=== PATIENT | female | born 1955 | race Caucasian/White ===

== ENCOUNTER 2023-08-23 20:52 | Inpatient (IN) | payer OTHER ==
[~2023-08-23] VITALS: Ht 172.7 cm; Wt 100.2 kg
[2023-08-23 21:45] VITALS: PULSE 127; RESP 16; O2SAT 94
[2023-08-23] MEDS ORDERED: LACTATED RINGER'S 2,000 ML IV ONE (22:00)
[2023-08-23] MEDS ORDERED: IOHEXOL 350 MG/ML 100ML IJ ONE (22:19)
[2023-08-23 22:35] LABS: Basophils # (auto) 0 10 ^3/uL (0-0.2); Basophils % (auto) 0.1 % (0.0-2.0); Eosinophils # (auto) 0 10 ^3/uL (0-0.8); Eosinophils % (auto) 0.3 % (0.0-7.0); Hematocrit 33.9 % (36.0-46.0); Hemoglobin 10.7 g/dL (12.2-16.2); Lymphocytes % (auto) 18.3 % (10.0-50.0); Mean Corpuscular Hgb Conc. 31.6 g/dL (32.0-36.0); Mean Corpuscular Volume 88.8 fL (80.0-100.0); Monocytes # (auto) 0.9 10 ^3/uL (0-1.3); Neutrophils # (auto) 8.1 10 ^3/uL (1.6-8.6); Neutrophils % (auto) 73.3 % (37.0-80.0); Red Blood Cells 3.82 10^6/uL (4.0-5.20); White Blood Cell 11.1 10^3/uL (4.4-10.8)
[2023-08-23 22:52] LABS: Albumin 2.2 g/dL (3.2-4.8); Alkaline Phosphatase 72 U/L (46-116); Anion Gap 12 (5-15); Aspartate Aminotransferase 12 U/L (13-40); BUN/Creatinine Ratio 14.5 (10.0-20.0); Bilirubin, Total 0.3 mg/dL (0.2-1.0); Blood Urea Nitrogen 9 mg/dL (9-23); Calcium 7.7 mg/dL (8.5-10.1); Carbon Dioxide 22 mmol/L (20-30); Chloride 96 mmol/L (98-107); Glucose 94 mg/dL (74-106); Sodium 130 mmol/L (136-145); Total Protein 3.8 g/dL (5.7-8.2)
[2023-08-23 23:00] LABS: Alanine Aminotransferase < 9 U/L (7-40); Potassium 2.9 mmol/L (3.5-5.1)
[2023-08-23] MEDS ORDERED: MORPHINE SULFATE 4 MG/ML SYR/VIAL IV ONE (23:00)
[2023-08-23 23:11] LABS: Lipase 30 U/L (12-53)
[2023-08-23] MEDS ORDERED: POTASSIUM CHL 20MEQ/100ML 100 ML IV ONE (23:15)
[2023-08-23] MEDS ORDERED: POTASSIUM EFFERVESENT TAB 25 MEQ PO ONE (23:15)
[2023-08-24] VITALS (7 sets, daily range): BP systolic 122–130; BP diastolic 62–75; PULSE 101–110; RESP 13–20; TEMP 97.4–98.3; O2SAT 99–100
[2023-08-24 00:40] LABS: Urine Bacteria NONE SEEN /hpf (None Seen); Urine Blood 1+ /uL (Negative); Urine Budding Yeast MODERATE /hpf (None Seen); Urine Clarity HAZY (Clear); Urine Color Yellow (Yellow); Urine Mucus FEW (None Seen); Urine Protein, UAD TRACE (Negative); Urine Urobilinogen Normal (Negative); Urine WBC 24 /hpf (0 - 5)
[2023-08-24] MEDS ORDERED: metroNIDAZOLE 500MG/100ML 100 ML IV ONE (03:15)
[2023-08-24] MEDS ORDERED: cefTRIAXone 1GM/50ML D5W 50 ML IV ONE (03:15)
[2023-08-24] MEDS ORDERED: AZITHROMYCIN 500MG/ 250ML 250 ML IV ONE (03:15)
[2023-08-24] MEDS ORDERED: ONDANSETRON HCL 4 MG/2 ML VIAL IV ONE (03:30)
[2023-08-24] MEDS ORDERED: MORPHINE SULFATE 4 MG/ML SYR/VIAL IV ONE (03:30)
[2023-08-24] MEDS ORDERED: MORPHINE SULFATE INJ 2 MG/ml SYRG IV PRN (04:00)
[2023-08-24] MEDS ORDERED: NITROGLYCERIN 0.4 MG SL TAB SL PRN (04:00)
[2023-08-24] MEDS ORDERED: ACETAMINOPHEN 325 MG TAB PO PRN (04:00)
[2023-08-24] MEDS ORDERED: DEXTROSE (50%) 50ML SYRG IV PRN (04:00)
[2023-08-24] MEDS: SODIUM CHLORIDE 0.9% 1,000 ML IV SCH ×2 (04:55→13:20)
[2023-08-24] MEDS: PANTOPRAZOLE 40 MG/10 ML VIAL INJ IV SCH (05:56)
[2023-08-24] MEDS: ACCU-CHEK COMFORT CURVE STRIP VI SCH ×3 (06:01→17:28)
[2023-08-24] MEDS: InsuLIN REG 1unit/0.01ml Soln (100units/ml) SC SCH ×3 (06:03→17:28)
[2023-08-24 06:30] LABS: Anion Gap 10 (5-15); Carbon Dioxide 23 mmol/L (20-30); Chloride 98 mmol/L (98-107); Sodium 131 mmol/L (136-145)
[2023-08-24 06:32] LABS: Calcium 7.7 mg/dL (8.7-10.4)
[2023-08-24 06:36] LABS: Glucose 132 mg/dL (74-106)
[2023-08-24 06:37] LABS: BUN/Creatinine Ratio 29.3 (10.0-20.0); Blood Urea Nitrogen 17 mg/dL (9-23)
[2023-08-24] MEDS: levoFLOXacin 500MG 100 ML IV SCH (06:45)
[2023-08-24 07:02] LABS: Basophils # (auto) 0 10 ^3/uL (0-0.2); Basophils % (auto) 0.1 % (0.0-2.0); Eosinophils # (auto) 0 10 ^3/uL (0-0.8); Eosinophils % (auto) 0.2 % (0.0-7.0); Hematocrit 33.7 % (36.0-46.0); Hemoglobin 11.2 g/dL (12.2-16.2); Lymphocytes # (auto) 1.8 10 ^3/uL (0.4-5.4); Lymphocytes % (auto) 20.6 % (10.0-50.0); Mean Corpuscular Hemoglobin 29.2 pg (28.0-32.0); Mean Corpuscular Hgb Conc. 33.3 g/dL (32.0-36.0); Mean Corpuscular Volume 87.6 fL (80.0-100.0); Monocytes # (auto) 0.7 10 ^3/uL (0-1.3); Monocytes % (auto) 8.4 % (0.0-12.0); Neutrophils # (auto) 6.2 10 ^3/uL (1.6-8.6); Neutrophils % (auto) 70.7 % (37.0-80.0); Red Blood Cells 3.85 10^6/uL (4.0-5.20); Red Cell Distribution Width 18.4 % (11.8-14.3); White Blood Cell 8.7 10^3/uL (4.4-10.8)
[2023-08-24] MEDS: ENOXAPARIN SOD 40 MG/0.4 ML SYRINGE SC SCH (10:24)
[2023-08-24] MEDS ORDERED: AMLO1TAB21 PO (11:15)
[2023-08-24] MEDS ORDERED: ALLO100T PO (11:15)
[2023-08-24] MEDS ORDERED: CYCL0.05 EACHEYE (11:15)
[2023-08-24] MEDS ORDERED: ESCI5TAB20 PO (11:15)
[2023-08-24] MEDS ORDERED: APIX5TAB PO (11:15)
[2023-08-24] MEDS ORDERED: ALEN35TA18 PO (11:15)
[2023-08-24] MEDS ORDERED: CHOL4POW33 PO (12:01)
[2023-08-24] MEDS ORDERED: LOP2C PO (12:01)
[2023-08-24] MEDS ORDERED: PANT40TA57 PO (12:01)
[2023-08-24] MEDS ORDERED: MET500T PO (12:01)
[2023-08-24] MEDS: HYOSCYAMINE SULF 0.125 MG ODT TAB PO SCH ×2 (13:29→21:06)
[2023-08-24] MEDS: metroNIDAZOLE 500MG/100ML 100 ML IV SCH ×2 (13:57→21:07)
[2023-08-24] MEDS ORDERED: PNEUMOCOCCAL VACC POLYS 25 MCG/0.5 ML VIAL IM ONE (17:00)
[2023-08-24] MEDS ORDERED: INFLUENZA QUAD 2023-2024 0.5 ML SYRG IM ONE (17:15)
[2023-08-24] MEDS: MORPHINE SULFATE INJ 2 MG/ml SYRG IV PRN (21:08)
[2023-08-25] VITALS (7 sets, daily range): BP systolic 109–143; BP diastolic 58–79; PULSE 63–104; RESP 0–20; TEMP 97.8–99.1; O2SAT 97–100
[2023-08-25] MEDS: HYOSCYAMINE SULF 0.125 MG ODT TAB PO SCH (05:53)
[2023-08-25] MEDS: metroNIDAZOLE 500MG/100ML 100 ML IV SCH ×3 (05:53→21:07)
[2023-08-25] MEDS: InsuLIN REG 1unit/0.01ml Soln (100units/ml) SC SCH ×3 (06:00→11:42)
[2023-08-25] MEDS: SODIUM CHLORIDE 0.9% 1,000 ML IV SCH ×3 (06:07→13:30)
[2023-08-25] MEDS: ACCU-CHEK COMFORT CURVE STRIP VI SCH ×3 (06:07→11:42)
[2023-08-25 06:10] LABS: Basophils # (auto) 0 10 ^3/uL (0-0.2); Basophils % (auto) 0.1 % (0.0-2.0); Eosinophils # (auto) 0 10 ^3/uL (0-0.8); Eosinophils % (auto) 0.7 % (0.0-7.0); Hematocrit 28.6 % (36.0-46.0); Hemoglobin 9.2 g/dL (12.2-16.2); Lymphocytes # (auto) 1.3 10 ^3/uL (0.4-5.4); Lymphocytes % (auto) 26.7 % (10.0-50.0); Mean Corpuscular Hgb Conc. 32.3 g/dL (32.0-36.0); Mean Corpuscular Volume 89.7 fL (80.0-100.0); Monocytes # (auto) 0.4 10 ^3/uL (0-1.3); Monocytes % (auto) 7.8 % (0.0-12.0); Neutrophils # (auto) 3.2 10 ^3/uL (1.6-8.6); Neutrophils % (auto) 64.7 % (37.0-80.0); Red Blood Cells 3.19 10^6/uL (4.0-5.20); Red Cell Distribution Width 18.7 % (11.8-14.3)
[2023-08-25 06:21] LABS: Anion Gap 7 (5-15); Calcium 7.6 mg/dL (8.7-10.4); Carbon Dioxide 24 mmol/L (20-30); Chloride 102 mmol/L (98-107); Potassium 3.6 mmol/L (3.5-5.1); Sodium 133 mmol/L (136-145)
[2023-08-25 06:27] LABS: BUN/Creatinine Ratio 15.1 (10.0-20.0); Blood Urea Nitrogen 8 mg/dL (9-23); Glucose 79 mg/dL (74-106)
[2023-08-25 06:28] LABS: Magnesium 1.5 mg/dL (1.6-2.6)
[2023-08-25] MEDS: DICYCLOMINE HCL 10 MG CAP PO SCH ×2 (10:19→21:08)
[2023-08-25] MEDS: levoFLOXacin 500MG 100 ML IV SCH (10:19)
[2023-08-25] MEDS: ENOXAPARIN SOD 40 MG/0.4 ML SYRINGE SC SCH (10:20)
[2023-08-25] MEDS: CHOLESTYRAMINE 4 GM POWDER PO SCH ×2 (10:20→22:50)
[2023-08-25] MEDS: PANTOPRAZOLE 40 MG/10 ML VIAL INJ IV SCH (10:20)
[2023-08-25] MEDS: MORPHINE SULFATE INJ 2 MG/ml SYRG IV PRN ×2 (12:41→22:58)
[2023-08-25 14:20] LABS: Erythrocyte Sedimentation Rate 13 mm/hr (0-20)
[2023-08-25] MEDS: APIXABAN 5 MG TAB PO SCH (21:08)
[2023-08-25] MEDS: ALLOPURINOL 100 MG TAB PO SCH (21:08)
[2023-08-25] MEDS: CYCLOSPORINE EACHEYE SCH (21:50)
[2023-08-26] VITALS (7 sets, daily range): BP systolic 113–150; BP diastolic 68–86; PULSE 96–107; RESP 16–20; TEMP 97.5–98.3; O2SAT 96–100
[2023-08-26 03:59] LABS: Basophils # (auto) 0 10 ^3/uL (0-0.2); Basophils % (auto) 0.2 % (0.0-2.0); Eosinophils # (auto) 0 10 ^3/uL (0-0.8); Eosinophils % (auto) 0.6 % (0.0-7.0); Hematocrit 29.5 % (36.0-46.0); Hemoglobin 9.7 g/dL (12.2-16.2); Lymphocytes # (auto) 0.8 10 ^3/uL (0.4-5.4); Lymphocytes % (auto) 15.1 % (10.0-50.0); Mean Corpuscular Hemoglobin 28.9 pg (28.0-32.0); Mean Corpuscular Hgb Conc. 32.9 g/dL (32.0-36.0); Mean Corpuscular Volume 87.9 fL (80.0-100.0); Monocytes # (auto) 0.3 10 ^3/uL (0-1.3); Monocytes % (auto) 6.7 % (0.0-12.0); Neutrophils % (auto) 77.4 % (37.0-80.0); Nucleated Red Blood Cells % 0.1 %; Red Blood Cells 3.36 10^6/uL (4.0-5.20); Red Cell Distribution Width 18.5 % (11.8-14.3); White Blood Cell 5.1 10^3/uL (4.4-10.8)
[2023-08-26 04:24] LABS: Chloride 103 mmol/L (98-107); Potassium 3.3 mmol/L (3.5-5.1); Sodium 135 mmol/L (136-145)
[2023-08-26 04:25] LABS: Anion Gap 8 (5-15); Calcium 7.6 mg/dL (8.5-10.1); Carbon Dioxide 24 mmol/L (20-30)
[2023-08-26 04:30] LABS: Blood Urea Nitrogen 8 mg/dL (9-23); Glucose 82 mg/dL (74-106)
[2023-08-26 04:42] LABS: INR 1.31 (0.9-1.15); Partial Thromboplastin Time 35.9 SEC (24.5-34.5); Prothrombin Time 13.5 sec (9.3-11.8)
[2023-08-26] MEDS: metroNIDAZOLE 500MG/100ML 100 ML IV SCH ×3 (06:19→22:07)
[2023-08-26] MEDS: SODIUM CHLORIDE 0.9% 1,000 ML IV SCH (06:20)
[2023-08-26] MEDS: CYCLOSPORINE EACHEYE SCH ×2 (10:00→22:00)
[2023-08-26] MEDS: PANTOPRAZOLE 40 MG/10 ML VIAL INJ IV SCH (10:14)
[2023-08-26] MEDS: levoFLOXacin 500MG 100 ML IV SCH (10:14)
[2023-08-26] MEDS: CITALOPRAM HYDROBR 20 MG TAB PO SCH (10:14)
[2023-08-26] MEDS: APIXABAN 5 MG TAB PO SCH ×2 (10:15→22:07)
[2023-08-26] MEDS: ALLOPURINOL 100 MG TAB PO SCH ×2 (10:15→22:07)
[2023-08-26] MEDS: DICYCLOMINE HCL 10 MG CAP PO SCH ×2 (10:15→22:07)
[2023-08-26] MEDS: CHOLESTYRAMINE 4 GM POWDER PO SCH (10:19)
[2023-08-26] MEDS ORDERED: POTASSIUM CHL 20MEQ/100ML 100 ML IV ONE (12:45)
[2023-08-26] MEDS: MAGNESIUM SULFATE 1GM/100ML 100 ML IV SCH ×2 (12:58→17:45)
[2023-08-26] MEDS: MORPHINE SULFATE INJ 2 MG/ml SYRG IV PRN (22:09)
[2023-08-27] VITALS (7 sets, daily range): BP systolic 113–145; BP diastolic 68–88; PULSE 92–106; RESP 16–20; TEMP 97.5–98.5; O2SAT 95–100
[2023-08-27] MEDS: metroNIDAZOLE 500MG/100ML 100 ML IV SCH ×3 (06:08→21:24)
[2023-08-27 07:36] LABS: Hematocrit 30.8 % (36.0-46.0); Hemoglobin 10.1 g/dL (12.2-16.2); Mean Corpuscular Hemoglobin 28.8 pg (28.0-32.0); Mean Corpuscular Hgb Conc. 32.8 g/dL (32.0-36.0); Mean Corpuscular Volume 87.8 fL (80.0-100.0); White Blood Cell 3.9 10^3/uL (4.4-10.8)
[2023-08-27 07:45] LABS: Anion Gap 9 (5-15); Carbon Dioxide 23 mmol/L (20-30); Chloride 102 mmol/L (98-107); Potassium 3.2 mmol/L (3.5-5.1); Sodium 134 mmol/L (136-145)
[2023-08-27 07:47] LABS: Calcium 7.7 mg/dL (8.5-10.1)
[2023-08-27 07:51] LABS: BUN/Creatinine Ratio 12.5 (10.0-20.0); Blood Urea Nitrogen 6 mg/dL (9-23); Glucose 89 mg/dL (74-106)
[2023-08-27 08:01] LABS: Basophils % (manual) 0 (0.0-2.0); Blast Cells 0; Metamyelocytes % 0; Myelocytes % 0; Promyelocytes % 0; Reactive Lymphocytes 0
[2023-08-27 09:15] LABS: Anisocytosis Slight; Band Neutrophils % (manual) 2; Eosinophils % (manual) 1 (0-7); Lymphocytes % (manual) 19 (10.0-50.0); Monocytes % (manual) 8 (0-12); Platelet Estimate Adequate
[2023-08-27] MEDS: DICYCLOMINE HCL 10 MG CAP PO SCH ×2 (09:36→21:24)
[2023-08-27] MEDS: PANTOPRAZOLE 40 MG/10 ML VIAL INJ IV SCH (09:36)
[2023-08-27] MEDS: APIXABAN 5 MG TAB PO SCH ×2 (09:36→21:24)
[2023-08-27] MEDS: ALLOPURINOL 100 MG TAB PO SCH ×2 (09:36→21:24)
[2023-08-27] MEDS: CITALOPRAM HYDROBR 20 MG TAB PO SCH (09:39)
[2023-08-27] MEDS: levoFLOXacin 500MG 100 ML IV SCH (09:39)
[2023-08-27] MEDS: CYCLOSPORINE EACHEYE SCH ×2 (09:40→21:34)
[2023-08-27] MEDS: MORPHINE SULFATE INJ 2 MG/ml SYRG IV PRN (21:32)
[2023-08-28] VITALS (7 sets, daily range): BP systolic 113–168; BP diastolic 68–114; PULSE 89–110; RESP 15–20; TEMP 97.3–97.8; O2SAT 97–100
[2023-08-28 04:17] LABS: Basophils # (auto) 0 10 ^3/uL (0-0.2); Basophils % (auto) 0.2 % (0.0-2.0); Eosinophils # (auto) 0 10 ^3/uL (0-0.8); Eosinophils % (auto) 0.4 % (0.0-7.0); Hematocrit 32.2 % (36.0-46.0); Hemoglobin 10.6 g/dL (12.2-16.2); Lymphocytes # (auto) 1.1 10 ^3/uL (0.4-5.4); Lymphocytes % (auto) 21.5 % (10.0-50.0); Mean Corpuscular Hemoglobin 28.9 pg (28.0-32.0); Mean Corpuscular Volume 87.6 fL (80.0-100.0); Monocytes # (auto) 0.5 10 ^3/uL (0-1.3); Monocytes % (auto) 9.3 % (0.0-12.0); Neutrophils # (auto) 3.6 10 ^3/uL (1.6-8.6); Neutrophils % (auto) 68.6 % (37.0-80.0); Nucleated Red Blood Cells % 0.1 %; Red Blood Cells 3.68 10^6/uL (4.0-5.20); Red Cell Distribution Width 18.7 % (11.8-14.3); White Blood Cell 5.3 10^3/uL (4.4-10.8)
[2023-08-28 04:24] LABS: Anion Gap 11 (5-15); Calcium 7.9 mg/dL (8.7-10.4); Carbon Dioxide 22 mmol/L (20-30); Chloride 100 mmol/L (98-107); Potassium 3.1 mmol/L (3.5-5.1); Sodium 133 mmol/L (136-145)
[2023-08-28 04:30] LABS: Glucose 87 mg/dL (74-106)
[2023-08-28 04:36] LABS: Blood Urea Nitrogen < 5 mg/dL (9-23)
[2023-08-28] MEDS: metroNIDAZOLE 500MG/100ML 100 ML IV SCH ×3 (05:39→22:47)
[2023-08-28] MEDS: MORPHINE SULFATE INJ 2 MG/ml SYRG IV PRN (07:05)
[2023-08-28] MEDS: CYCLOSPORINE EACHEYE SCH ×2 (10:00→22:00)
[2023-08-28] MEDS: PANTOPRAZOLE 40 MG/10 ML VIAL INJ IV SCH (10:52)
[2023-08-28] MEDS: levoFLOXacin 500MG 100 ML IV SCH (10:52)
[2023-08-28] MEDS: APIXABAN 5 MG TAB PO SCH (10:53)
[2023-08-28] MEDS: ALLOPURINOL 100 MG TAB PO SCH ×2 (10:53→22:47)
[2023-08-28] MEDS: CITALOPRAM HYDROBR 20 MG TAB PO SCH (10:53)
[2023-08-28] MEDS: DICYCLOMINE HCL 10 MG CAP PO SCH ×2 (10:53→22:47)
[2023-08-28 13:06] LABS: Saccharomyces cerevisiae IgA <20.0 Units (0.0-24.9)
[2023-08-28] MEDS ORDERED: POTASSIUM CHL 20MEQ/100ML 100 ML IV ONE (15:30)
[2023-08-28] MEDS ORDERED: POTASSIUM EFFERVESENT TAB 25 MEQ PO ONE (15:30)
[2023-08-28] MEDS ORDERED: GOLYTELY 4L KIT PO ONE (16:15)
[2023-08-29] VITALS (7 sets, daily range): BP systolic 111–133; BP diastolic 79–89; PULSE 68–114; RESP 16–20; TEMP 97.4–98.2; O2SAT 95–97
[2023-08-29] MEDS: MORPHINE SULFATE INJ 2 MG/ml SYRG IV PRN ×3 (01:41→21:20)
[2023-08-29] MEDS: ONDANSETRON HCL 4 MG/2 ML VIAL IV PRN ×2 (01:48→21:03)
[2023-08-29] MEDS ORDERED: GOLYTELY 4L KIT PO ONE (06:00)
[2023-08-29] MEDS: metroNIDAZOLE 500MG/100ML 100 ML IV SCH ×3 (06:28→21:20)
[2023-08-29] MEDS ORDERED: diphenhdrAMINE HCL 50 MG/1 ML VL ONE (07:46)
[2023-08-29] MEDS: fentaNYL CITRATE 100 MCG/2 ML VL ONE ×3 (09:13→09:19)
[2023-08-29] MEDS: MIDAZOLAM HCL 2MG/2ML 2ml VIAL (1mg/ml) ONE ×3 (09:13→09:19)
[2023-08-29] MEDS: CYCLOSPORINE EACHEYE SCH ×2 (10:00→21:21)
[2023-08-29] MEDS: levoFLOXacin 500MG 100 ML IV SCH (10:17)
[2023-08-29] MEDS: CITALOPRAM HYDROBR 20 MG TAB PO SCH (10:17)
[2023-08-29] MEDS: DICYCLOMINE HCL 10 MG CAP PO SCH ×2 (10:17→21:20)
[2023-08-29] MEDS: PANTOPRAZOLE 40 MG/10 ML VIAL INJ IV SCH (10:17)
[2023-08-29] MEDS: ALLOPURINOL 100 MG TAB PO SCH ×2 (10:25→21:20)
[2023-08-30] MEDS: ONDANSETRON HCL 4 MG/2 ML VIAL IV PRN ×2 (03:52→09:28)
[2023-08-30 05:00] VITALS: BP 154/76; PULSE 65; RESP 19; TEMP 97.6; O2SAT 96
[2023-08-30] MEDS: metroNIDAZOLE 500MG/100ML 100 ML IV SCH ×3 (05:35→21:32)
[2023-08-30 08:00] VITALS: BP 135/99; PULSE 100; PULSE 71; RESP 18; TEMP 97.9; O2SAT 96
[2023-08-30 08:54] VITALS: BP 135/99; PULSE 71; RESP 18; TEMP 97.9; O2SAT 96
[2023-08-30] MEDS: ALLOPURINOL 100 MG TAB PO SCH ×2 (09:28→21:32)
[2023-08-30] MEDS: CITALOPRAM HYDROBR 20 MG TAB PO SCH (09:28)
[2023-08-30] MEDS: levoFLOXacin 500MG 100 ML IV SCH (09:28)
[2023-08-30] MEDS: PANTOPRAZOLE 40 MG/10 ML VIAL INJ IV SCH (09:28)
[2023-08-30] MEDS: DICYCLOMINE HCL 10 MG CAP PO SCH ×2 (09:28→21:32)
[2023-08-30] MEDS: MORPHINE SULFATE INJ 2 MG/ml SYRG IV PRN ×2 (09:29→21:54)
[2023-08-30] MEDS: CYCLOSPORINE EACHEYE SCH ×2 (10:00→21:33)
[2023-08-30 13:06] VITALS: BP 117/87; PULSE 100; RESP 20; TEMP 97.6; O2SAT 97
[2023-08-30] MEDS ORDERED: POTASSIUM CHL 20MEQ/100ML 100 ML, POTASSIUM CHL 20MEQ/100ML 100 ML IV ONE (14:15)
[2023-08-30] MEDS ORDERED: CLINIMIX PER PHARMACY 0 ML IV SCH (14:30)
[2023-08-30 16:03] LABS: Calcium 7.8 mg/dL (8.5-10.1)
[2023-08-30 16:07] LABS: BUN/Creatinine Ratio 13.8 (10.0-20.0)
[2023-08-30 16:09] LABS: Albumin 2.5 g/dL (3.2-4.8)
[2023-08-30 16:10] LABS: Phosphorus 2.2 mg/dL (2.4-5.1)
[2023-08-30 16:19] LABS: Potassium 2.5 mmol/L (3.5-5.1)
[2023-08-30] MEDS ORDERED: POTASSIUM CHL 20MEQ/100ML 100 ML IV SCH (16:30)
[2023-08-30] MEDS: POTASSIUM CHL 20MEQ/100ML 100 ML IV SCH ×2 (17:12→19:45)
[2023-08-30 20:00] VITALS: PULSE 114; RESP 19; O2SAT 97
[2023-08-30] MEDS ORDERED: AMINO ACID INFUSION IN D10W 1,000 ML IV NR (20:00)
[2023-08-30 22:00] VITALS: BP 148/86; PULSE 98; RESP 18; TEMP 97.9; O2SAT 95
[2023-08-30] MEDS ORDERED: POTASSIUM PHOSPHATE 22 MEQ in SODIUM CHL 0.9% 100 ML IV ONE (22:00)
[2023-08-30] MEDS: MAGNESIUM SULFATE 1GM/100ML 100 ML IV SCH ×2 (22:35→23:51)
[2023-08-31] VITALS (7 sets, daily range): BP systolic 132–148; BP diastolic 69–99; PULSE 71–115; RESP 16–22; TEMP 97.2–98.3; O2SAT 96–98
[2023-08-31] MEDS ORDERED: DEXTROSE (50%) 50ML SYRG IV SCH
[2023-08-31] MEDS: ACCU-CHEK COMFORT CURVE STRIP VI SCH ×4 (00:06→17:46)
[2023-08-31] MEDS: MAGNESIUM SULFATE 1GM/100ML 100 ML IV SCH (01:11)
[2023-08-31] MEDS ORDERED: MAGNESIUM SULFATE 1GM/100ML 100 ML IV SCH (02:00)
[2023-08-31] MEDS: metroNIDAZOLE 500MG/100ML 100 ML IV SCH ×2 (05:15→15:41)
[2023-08-31] MEDS: InsuLIN REG 1unit/0.01ml Soln (100units/ml) SC SCH ×4 (05:31→17:46)
[2023-08-31 07:56] LABS: Albumin 2.5 g/dL (3.2-4.8); Alkaline Phosphatase 85 U/L (46-116); Anion Gap 11 (5-15); Aspartate Aminotransferase 12 U/L (13-40); BUN/Creatinine Ratio 12.5 (10.0-20.0); Bilirubin, Total 0.2 mg/dL (0.2-1.0); Blood Urea Nitrogen 7 mg/dL (9-23); Calcium 7.6 mg/dL (8.5-10.1); Carbon Dioxide 21 mmol/L (20-30); Chloride 100 mmol/L (98-107); Glucose 140 mg/dL (74-106); Potassium 3.2 mmol/L (3.5-5.1); Sodium 132 mmol/L (136-145); Total Protein 3.9 g/dL (5.7-8.2)
[2023-08-31 08:03] LABS: Alanine Aminotransferase < 9 U/L (7-40)
[2023-08-31] MEDS: CYCLOSPORINE EACHEYE SCH ×2 (10:00→21:35)
[2023-08-31] MEDS: CITALOPRAM HYDROBR 20 MG TAB PO SCH (11:23)
[2023-08-31] MEDS: DICYCLOMINE HCL 10 MG CAP PO SCH ×2 (11:25→21:22)
[2023-08-31] MEDS: ALLOPURINOL 100 MG TAB PO SCH ×2 (11:25→21:23)
[2023-08-31] MEDS: PANTOPRAZOLE 40 MG/10 ML VIAL INJ IV SCH (15:40)
[2023-08-31] MEDS: POTASSIUM CHL 20MEQ/100ML 100 ML IV SCH ×4 (15:42→23:19)
[2023-08-31] MEDS: levoFLOXacin 500MG 100 ML IV SCH (15:43)
[2023-08-31] MEDS: DOCUSATE SOD 100 MG CAP PO PRN (20:49)
[2023-08-31] MEDS: MORPHINE SULFATE INJ 2 MG/ml SYRG IV PRN (20:50)
[2023-08-31] MEDS: metroNIDAZOLE 500 MG TAB PO SCH (21:21)
[2023-09-01] VITALS (7 sets, daily range): BP systolic 135–163; BP diastolic 75–99; PULSE 56–113; RESP 16–20; TEMP 97.8–98.4; O2SAT 94–99
[2023-09-01] MEDS: metroNIDAZOLE 500 MG TAB PO SCH ×3 (06:12→22:20)
[2023-09-01] MEDS: ALLOPURINOL 100 MG TAB PO SCH ×2 (10:00→22:20)
[2023-09-01] MEDS: CYCLOSPORINE EACHEYE SCH ×2 (10:00→22:00)
[2023-09-01] MEDS: DICYCLOMINE HCL 10 MG CAP PO SCH ×2 (10:32→22:20)
[2023-09-01] MEDS: levoFLOXacin 500 MG TAB PO SCH (10:32)
[2023-09-01] MEDS: CITALOPRAM HYDROBR 20 MG TAB PO SCH (10:32)
[2023-09-02] VITALS (7 sets, daily range): BP systolic 135–154; BP diastolic 64–99; PULSE 61–119; RESP 18–20; TEMP 97.6–98.4; O2SAT 94–97
[2023-09-02] MEDS: metroNIDAZOLE 500 MG TAB PO SCH ×3 (05:32→22:38)
[2023-09-02] MEDS: CYCLOSPORINE EACHEYE SCH ×2 (10:00→22:00)
[2023-09-02] MEDS: levoFLOXacin 500 MG TAB PO SCH (10:14)
[2023-09-02] MEDS: CITALOPRAM HYDROBR 20 MG TAB PO SCH (10:14)
[2023-09-02] MEDS: DICYCLOMINE HCL 10 MG CAP PO SCH ×2 (10:14→22:40)
[2023-09-02] MEDS: ALLOPURINOL 100 MG TAB PO SCH ×2 (10:14→22:39)
[2023-09-02] MEDS: ONDANSETRON HCL 4 MG/2 ML VIAL IV PRN ×2 (13:46→22:04)
[2023-09-02 16:48] LABS: Albumin 2.5 g/dL (3.2-4.8); Alkaline Phosphatase 85 U/L (46-116); Anion Gap 11 (5-15); Aspartate Aminotransferase 9 U/L (13-40); BUN/Creatinine Ratio 11.1 (10.0-20.0); Bilirubin, Total 0.3 mg/dL (0.2-1.0); Blood Urea Nitrogen 6 mg/dL (9-23); Calcium 7.8 mg/dL (8.5-10.1); Carbon Dioxide 21 mmol/L (20-30); Chloride 100 mmol/L (98-107); Glucose 79 mg/dL (74-106); Sodium 132 mmol/L (136-145)
[2023-09-02 16:49] LABS: Total Protein 4.1 g/dL (5.7-8.2)
[2023-09-02 16:52] LABS: Alanine Aminotransferase < 9 U/L (7-40)
[2023-09-02 16:53] LABS: Basophils # (auto) 0 10 ^3/uL (0-0.2); Basophils % (auto) 0.2 % (0.0-2.0); Eosinophils # (auto) 0 10 ^3/uL (0-0.8); Eosinophils % (auto) 0.1 % (0.0-7.0); Hematocrit 31.8 % (36.0-46.0); Hemoglobin 10.3 g/dL (12.2-16.2); Lymphocytes # (auto) 1.4 10 ^3/uL (0.4-5.4); Lymphocytes % (auto) 19.9 % (10.0-50.0); Mean Corpuscular Hemoglobin 28.1 pg (28.0-32.0); Mean Corpuscular Hgb Conc. 32.5 g/dL (32.0-36.0); Mean Corpuscular Volume 86.2 fL (80.0-100.0); Monocytes # (auto) 0.4 10 ^3/uL (0-1.3); Monocytes % (auto) 6.2 % (0.0-12.0); Neutrophils # (auto) 5.3 10 ^3/uL (1.6-8.6); Neutrophils % (auto) 73.6 % (37.0-80.0); Nucleated Red Blood Cells % 0.2 %; Red Blood Cells 3.69 10^6/uL (4.0-5.20); Red Cell Distribution Width 18.7 % (11.8-14.3); White Blood Cell 7.2 10^3/uL (4.4-10.8)
[2023-09-02 17:28] LABS: Erythrocyte Sedimentation Rate 9 mm/hr (0-20)
[2023-09-02 17:30] LABS: Lipase 35 U/L (12-53)
[2023-09-02] MEDS: SUCRALFATE 1 GM/10 ML ORAL SUSP PO SCH (17:49)
[2023-09-02] MEDS: CEPHALEXIN 250 MG CAP PO SCH (22:39)
[2023-09-03] VITALS (7 sets, daily range): BP systolic 140–162; BP diastolic 84–107; PULSE 63–123; RESP 18–20; TEMP 97.4–98.1; O2SAT 90–99
[2023-09-03] MEDS: metroNIDAZOLE 500 MG TAB PO SCH ×3 (06:09→22:17)
[2023-09-03] MEDS: SUCRALFATE 1 GM/10 ML ORAL SUSP PO SCH ×2 (06:17→16:19)
[2023-09-03] MEDS: CYCLOSPORINE EACHEYE SCH ×2 (09:17→22:00)
[2023-09-03] MEDS: CEPHALEXIN 250 MG CAP PO SCH ×2 (09:23→22:17)
[2023-09-03] MEDS: DICYCLOMINE HCL 10 MG CAP PO SCH ×2 (09:23→22:16)
[2023-09-03] MEDS: CITALOPRAM HYDROBR 20 MG TAB PO SCH (09:23)
[2023-09-03] MEDS: ALLOPURINOL 100 MG TAB PO SCH ×2 (09:24→22:17)
[2023-09-03] MEDS ORDERED: ENOXAPARIN SOD 40 MG/0.4 ML SYRINGE SC SCH (10:00)
[2023-09-03] MEDS: MORPHINE SULFATE INJ 2 MG/ml SYRG IV PRN (12:23)
[2023-09-03] MEDS: ONDANSETRON HCL 4 MG/2 ML VIAL IV PRN ×2 (12:23→21:11)
[2023-09-03] MEDS ORDERED: MORPHINE SULFATE INJ 2 MG/ml SYRG IV PRN (16:15)
[2023-09-03] MEDS ORDERED: METOPROLOL TARTRATE 25 MG TAB PO ONE (16:15)
[2023-09-03] MEDS: APIXABAN 5 MG TAB PO SCH (22:16)
[2023-09-03] MEDS: METOPROLOL TARTRATE 25 MG TAB PO SCH (22:17)
[2023-09-04] VITALS (8 sets, daily range): BP systolic 138–161; BP diastolic 75–92; PULSE 73–87; RESP 16–22; TEMP 97.3–98.2; O2SAT 95–100
[2023-09-04] MEDS: metroNIDAZOLE 500 MG TAB PO SCH ×3 (05:54→22:02)
[2023-09-04] MEDS: SUCRALFATE 1 GM/10 ML ORAL SUSP PO SCH ×2 (05:54→18:06)
[2023-09-04 06:16] LABS: Chloride 100 mmol/L (98-107); Sodium 132 mmol/L (136-145)
[2023-09-04 06:17] LABS: Anion Gap 8 (5-15); Calcium 7.7 mg/dL (8.7-10.4); Carbon Dioxide 24 mmol/L (20-30)
[2023-09-04 06:21] LABS: Potassium 2.9 mmol/L (3.5-5.1)
[2023-09-04 06:22] LABS: BUN/Creatinine Ratio 13.3 (10.0-20.0); Blood Urea Nitrogen 8 mg/dL (9-23); Glucose 79 mg/dL (74-106)
[2023-09-04 06:30] LABS: Basophils # (auto) 0 10 ^3/uL (0-0.2); Eosinophils # (auto) 0.1 10 ^3/uL (0-0.8); Eosinophils % (auto) 0.8 % (0.0-7.0); Hematocrit 29.7 % (36.0-46.0); INR 1.11 (0.9-1.15); Lymphocytes # (auto) 1.7 10 ^3/uL (0.4-5.4); Lymphocytes % (auto) 24.2 % (10.0-50.0); Mean Corpuscular Hemoglobin 28.9 pg (28.0-32.0); Mean Corpuscular Hgb Conc. 33.6 g/dL (32.0-36.0); Mean Corpuscular Volume 86.1 fL (80.0-100.0); Monocytes # (auto) 0.4 10 ^3/uL (0-1.3); Monocytes % (auto) 6.4 % (0.0-12.0); Neutrophils # (auto) 4.8 10 ^3/uL (1.6-8.6); Neutrophils % (auto) 68.6 % (37.0-80.0); Nucleated Red Blood Cells % 0.2 %; Partial Thromboplastin Time 30.6 SEC (24.5-34.5); Prothrombin Time 11.6 sec (9.3-11.8); Red Blood Cells 3.45 10^6/uL (4.0-5.20); Red Cell Distribution Width 18.6 % (11.8-14.3)
[2023-09-04] MEDS: DICYCLOMINE HCL 10 MG CAP PO SCH ×2 (09:36→22:02)
[2023-09-04] MEDS: CITALOPRAM HYDROBR 20 MG TAB PO SCH (09:36)
[2023-09-04] MEDS: METOPROLOL TARTRATE 25 MG TAB PO SCH ×2 (09:36→22:14)
[2023-09-04] MEDS: CEPHALEXIN 250 MG CAP PO SCH ×2 (09:36→22:02)
[2023-09-04] MEDS: APIXABAN 5 MG TAB PO SCH ×2 (09:36→22:02)
[2023-09-04] MEDS: ALLOPURINOL 100 MG TAB PO SCH ×2 (09:44→22:02)
[2023-09-04] MEDS: CYCLOSPORINE EACHEYE SCH ×2 (10:00→22:00)
[2023-09-04] MEDS ORDERED: POTASSIUM EFFERVESENT TAB 25 MEQ GT ONE (10:45)
[2023-09-04] MEDS ORDERED: POTASSIUM CHLORIDE 40 MEQ, LIDOCAINE 1% (LOCAL ANESTH.) 4 ML in SODIUM CHL 0.9% 250 ML IV ONE (10:45)
[2023-09-04] MEDS: ONDANSETRON HCL 4 MG/2 ML VIAL IV PRN ×2 (11:52→22:14)
[2023-09-04 19:13] LABS: Magnesium 1.7 mg/dL (1.6-2.6)
[2023-09-05] VITALS (9 sets, daily range): BP systolic 124–152; BP diastolic 79–93; PULSE 79–96; RESP 16–20; TEMP 97.9–98.4; O2SAT 95–100
[2023-09-05] MEDS: SUCRALFATE 1 GM/10 ML ORAL SUSP PO SCH ×2 (06:03→17:07)
[2023-09-05] MEDS: metroNIDAZOLE 500 MG TAB PO SCH ×3 (06:03→22:57)
[2023-09-05 07:46] LABS: Basophils # (auto) 0 10 ^3/uL (0-0.2); Basophils % (auto) 0.2 % (0.0-2.0); Eosinophils # (auto) 0 10 ^3/uL (0-0.8); Eosinophils % (auto) 0.5 % (0.0-7.0); Hematocrit 31.6 % (36.0-46.0); Hemoglobin 10.2 g/dL (12.2-16.2); Lymphocytes # (auto) 1.7 10 ^3/uL (0.4-5.4); Mean Corpuscular Hemoglobin 28.2 pg (28.0-32.0); Mean Corpuscular Hgb Conc. 32.3 g/dL (32.0-36.0); Mean Corpuscular Volume 87.4 fL (80.0-100.0); Monocytes # (auto) 0.6 10 ^3/uL (0-1.3); Monocytes % (auto) 6.6 % (0.0-12.0); Neutrophils # (auto) 6.5 10 ^3/uL (1.6-8.6); Neutrophils % (auto) 73.7 % (37.0-80.0); Nucleated Red Blood Cells % 0.1 %; Red Blood Cells 3.61 10^6/uL (4.0-5.20); Red Cell Distribution Width 18.5 % (11.8-14.3); White Blood Cell 8.8 10^3/uL (4.4-10.8)
[2023-09-05 08:00] LABS: Chloride 99 mmol/L (98-107); Potassium 3.6 mmol/L (3.5-5.1); Sodium 133 mmol/L (136-145)
[2023-09-05 08:01] LABS: Anion Gap 9 (5-15); Calcium 7.6 mg/dL (8.5-10.1); Carbon Dioxide 25 mmol/L (20-30)
[2023-09-05 08:06] LABS: BUN/Creatinine Ratio 16.4 (10.0-20.0); Blood Urea Nitrogen 9 mg/dL (9-23); Glucose 88 mg/dL (74-106)
[2023-09-05 08:34] LABS: Magnesium 1.7 mg/dL (1.6-2.6)
[2023-09-05] MEDS: DOCUSATE SOD 100 MG CAP PO PRN (09:55)
[2023-09-05] MEDS: METOPROLOL TARTRATE 25 MG TAB PO SCH ×2 (09:56→23:13)
[2023-09-05] MEDS: ALLOPURINOL 100 MG TAB PO SCH ×2 (09:56→22:57)
[2023-09-05] MEDS: CEPHALEXIN 250 MG CAP PO SCH ×2 (09:57→22:57)
[2023-09-05] MEDS: DICYCLOMINE HCL 10 MG CAP PO SCH ×2 (09:57→22:57)
[2023-09-05] MEDS: APIXABAN 5 MG TAB PO SCH ×2 (09:57→22:57)
[2023-09-05] MEDS: CITALOPRAM HYDROBR 20 MG TAB PO SCH (09:58)
[2023-09-05] MEDS: CYCLOSPORINE EACHEYE SCH ×2 (09:58→22:00)
[2023-09-05] MEDS ORDERED: traMADol HCL 50 MG TAB PO PRN (15:30)
[2023-09-05] MEDS: ONDANSETRON ODT 4 MG TAB PO PRN (21:20)
[2023-09-06 04:16] VITALS: BP 157/93; PULSE 75; RESP 18; TEMP 97.7; O2SAT 97
[2023-09-06] MEDS: metroNIDAZOLE 500 MG TAB PO SCH ×3 (05:47→22:54)
[2023-09-06] MEDS: SUCRALFATE 1 GM/10 ML ORAL SUSP PO SCH ×2 (06:52→16:44)
[2023-09-06 08:00] VITALS: BP 153/89; PULSE 83; PULSE 87; RESP 20; TEMP 97.6; O2SAT 97
[2023-09-06 09:13] VITALS: BP 153/89; PULSE 87; RESP 20; TEMP 97.6; O2SAT 97
[2023-09-06] MEDS: CYCLOSPORINE EACHEYE SCH ×2 (10:00→22:00)
[2023-09-06] MEDS: ALLOPURINOL 100 MG TAB PO SCH ×2 (10:20→22:57)
[2023-09-06] MEDS: CITALOPRAM HYDROBR 20 MG TAB PO SCH (10:21)
[2023-09-06] MEDS: DOCUSATE SOD 100 MG CAP PO PRN (10:21)
[2023-09-06] MEDS: APIXABAN 5 MG TAB PO SCH ×2 (10:21→22:58)
[2023-09-06] MEDS: METOPROLOL TARTRATE 25 MG TAB PO SCH ×2 (10:21→23:02)
[2023-09-06] MEDS: CEPHALEXIN 250 MG CAP PO SCH ×2 (10:21→22:55)
[2023-09-06] MEDS: DICYCLOMINE HCL 10 MG CAP PO SCH ×2 (10:22→22:57)
[2023-09-06] MEDS: ONDANSETRON ODT 4 MG TAB PO PRN (12:35)
[2023-09-06 16:41] VITALS: BP 128/67; PULSE 63; RESP 20; TEMP 98.1; O2SAT 95
[2023-09-06 20:00] VITALS: BP 153/89; PULSE 87; PULSE 93; RESP 18; RESP 20; TEMP 97.6; O2SAT 96
[2023-09-06 22:00] VITALS: BP 132/82; PULSE 60; RESP 18; TEMP 98.3; O2SAT 96
[2023-09-07] VITALS (7 sets, daily range): BP systolic 126–153; BP diastolic 74–89; PULSE 76–100; RESP 18–20; TEMP 97.1–98.4; O2SAT 92–98
[2023-09-07] MEDS: ONDANSETRON ODT 4 MG TAB PO PRN ×2 (04:08→21:54)
[2023-09-07] MEDS: metroNIDAZOLE 500 MG TAB PO SCH ×4 (06:08→21:48)
[2023-09-07] MEDS: SUCRALFATE 1 GM/10 ML ORAL SUSP PO SCH ×2 (06:09→17:34)
[2023-09-07] MEDS: CITALOPRAM HYDROBR 20 MG TAB PO SCH (09:32)
[2023-09-07] MEDS: APIXABAN 5 MG TAB PO SCH ×2 (09:32→21:39)
[2023-09-07] MEDS: DICYCLOMINE HCL 10 MG CAP PO SCH ×2 (09:32→21:38)
[2023-09-07] MEDS: PANTOPRAZOLE 40 MG TAB PO SCH (09:32)
[2023-09-07] MEDS: ALLOPURINOL 100 MG TAB PO SCH ×2 (09:32→21:42)
[2023-09-07] MEDS: CEPHALEXIN 250 MG CAP PO SCH ×2 (09:32→21:49)
[2023-09-07] MEDS: METOPROLOL TARTRATE 25 MG TAB PO SCH ×2 (09:33→21:41)
[2023-09-07] MEDS: CYCLOSPORINE EACHEYE SCH ×2 (09:33→21:36)
[2023-09-07] MEDS: DOCUSATE SOD 100 MG CAP PO PRN (14:41)
[2023-09-08] VITALS (8 sets, daily range): BP systolic 118–153; BP diastolic 66–89; PULSE 63–95; RESP 14–20; TEMP 97.3–98.4; O2SAT 96–98
[2023-09-08] MEDS: metroNIDAZOLE 500 MG TAB PO SCH ×3 (06:00→21:59)
[2023-09-08] MEDS: SUCRALFATE 1 GM/10 ML ORAL SUSP PO SCH ×2 (06:19→17:16)
[2023-09-08] MEDS: CYCLOSPORINE EACHEYE SCH ×2 (10:00→21:59)
[2023-09-08] MEDS: CEPHALEXIN 250 MG CAP PO SCH ×2 (10:00→21:59)
[2023-09-08] MEDS: DICYCLOMINE HCL 10 MG CAP PO SCH ×2 (10:27→21:56)
[2023-09-08] MEDS: CITALOPRAM HYDROBR 20 MG TAB PO SCH (10:27)
[2023-09-08] MEDS: PANTOPRAZOLE 40 MG TAB PO SCH (10:27)
[2023-09-08] MEDS: APIXABAN 5 MG TAB PO SCH ×2 (10:27→21:55)
[2023-09-08] MEDS: ALLOPURINOL 100 MG TAB PO SCH ×2 (10:27→21:56)
[2023-09-08] MEDS: METOPROLOL TARTRATE 25 MG TAB PO SCH ×2 (10:28→21:53)
[2023-09-09 05:00] VITALS: BP 143/80; PULSE 82; RESP 14; TEMP 97.3; O2SAT 96
[2023-09-09] MEDS: metroNIDAZOLE 500 MG TAB PO SCH (06:00)
[2023-09-09] MEDS: SUCRALFATE 1 GM/10 ML ORAL SUSP PO SCH (06:13)
[2023-09-09 08:00] VITALS: PULSE 93
[2023-09-09] MEDS: CYCLOSPORINE EACHEYE SCH (08:56)
[2023-09-09] MEDS: ONDANSETRON ODT 4 MG TAB PO PRN (08:57)
[2023-09-09] MEDS: APIXABAN 5 MG TAB PO SCH (08:57)
[2023-09-09] MEDS: CITALOPRAM HYDROBR 20 MG TAB PO SCH (08:57)
[2023-09-09] MEDS: PANTOPRAZOLE 40 MG TAB PO SCH (08:58)
[2023-09-09] MEDS: ALLOPURINOL 100 MG TAB PO SCH (08:58)
[2023-09-09] MEDS: METOPROLOL TARTRATE 25 MG TAB PO SCH (09:01)
[2023-09-09] MEDS: Ensure Pudding Vanilla 4 oz Cup PO SCH ×2 (09:01→12:42)
[2023-09-09] MEDS: DICYCLOMINE HCL 10 MG CAP PO SCH (09:03)
[2023-09-09 09:56] VITALS: BP 127/76; PULSE 57; RESP 19; TEMP 98.4; O2SAT 98
[2023-09-09] MEDS ORDERED: ESCI1TAB37 PO (16:38)
[2023-09-09] MEDS ORDERED: METO-535 PO (16:38)
[2023-09-09] MEDS ORDERED: SUCR1SUS26 PO (16:38)
== END 2023-09-09 12:00 | disposition home or self-care (01) | DRG 392 ==
LOC: EDBD 20:52 → ER 20:52 → TELE 08-24 04:11 → TELE-WESTW 08-24 11:20
PROVIDERS: ADMIT Nurse Practitioner Family; ATTEND Hospitalist
PROC: 0DBK8ZX Excision of Ascending Colon, Via Natural or Artificial Opening Endoscopic, Diagnostic (ICD-10-PCS; principal; 2023-09-08)
PROC: 0DBM8ZX Excision of Descending Colon, Via Natural or Artificial Opening Endoscopic, Diagnostic (ICD-10-PCS; 2023-09-08)
DX: K52.9 Noninfective gastroenteritis and colitis, unspecified (principal); N39.0 Urinary tract infection, site not specified; E87.1 Hypo-osmolality and hyponatremia; E86.0 Dehydration; E87.6 Hypokalemia; I10 Essential (primary) hypertension; E66.01 Morbid (severe) obesity due to excess calories; Z68.33 Body mass index [BMI] 33.0-33.9, adult; I48.0 Paroxysmal atrial fibrillation; F41.9 Anxiety disorder, unspecified; G89.29 Other chronic pain; K64.4 Residual hemorrhoidal skin tags; K64.8 Other hemorrhoids; Z79.01 Long term (current) use of anticoagulants; Z90.49 Acquired absence of other specified parts of digestive tract
CPT/HCPCS: 36415; 45380; 71045; 74177; 80048; 80053; 80069; 81001; 82962; 83605; 83690; 83735; 84132; 84439; 84443; 84484; 85007; 85025; 85027; 85610; 85652; 85730; 86141; 86256; 86671; 87081; 93005; 93971; 97110; 97116; 97163; 97530; C9113; G0378; J0696; J1815; J1956; J2001; J2250; J2405; J3480; J3490; Q0162